=== PATIENT | female | born 1995 | race Caucasian/White ===

== ENCOUNTER 2018-05-12 16:49 | Outpatient (REF) | payer BC, SELFPAY | END 2018-05-12 17:09 | LOC: LBN 16:49 | PROVIDERS: PCP Family Medicine; Visit Provider Nurse Practitioner Family | DX: R30.0 Dysuria (principal) | CPT/HCPCS: 87077; 87086; 87186 ==

== ENCOUNTER 2018-10-15 17:16 | Outpatient (REF) | payer BC, SELFPAY ==
--- NOTE | 2018-10-15 16:00 | PAPFT_PTH ---
PATIENT: Jenni Chawla LOC: [facility] U#:[id number] AGE/SX: 23/F ROOM: RE10/15/[address]: Radha Peguero NP : 1995 BED: DIS: 10/15/2018 SPEC #: [id number] RECD: 10/15/18 17:57 STATUS: NAMRATA RESemaj #: [id number] GABY: 10/15/18 16:[address]: Radha Peguero NP DEPT: [facility] Cytology RECD BY: Camelia Taylor ENTERED: 10/15/18 17:57 SP TYPE: PAPFT OTHR DR: Nahomi Contreras Tissues: 1 - CX/ENDOCX FOR PAP SMEARS Procedures: PAP THIN PREP/UVM Screening Comments: [id number]
== END 2018-10-15 17:36 ==
LOC: LBN 17:16
PROVIDERS: PCP Family Medicine; Visit Provider Nurse Practitioner Women's Health
DX: Z12.4 Encounter for screening for malignant neoplasm of cervix (principal)
CPT/HCPCS: 88142

== ENCOUNTER 2018-12-03 14:03 | Outpatient (CLI) | payer BC, SELFPAY ==
[2018-12-03 14:43] LABS: Abs Immature Grans 0.01 k/cumm (0.0-0.09); Absolute Basophil Count 0.03 k/cumm (0.0-0.2); Absolute Eosinophil Count 0.22 k/cumm (0.0-0.7); Absolute Lymphocyte Count 2.32 k/cumm (1.2-3.4); Absolute Monocyte Count 0.77 k/cumm (0.11-0.7); Absolute Neutrophil Count 7.24 k/cumm (1.2-6.7); Basophils % 0.3; Eosinophils % 2.1; HCT 39.9 % (36.0-46.0); HGB 13.8 g/dL (12.0-15.5); Immature Grans % 0.1; Lymphocytes % 21.9; Mean Corp. HGB Concentration 34.6 g/dL (32.0-36.0); Mean Corpuscular Hemoglobin 30.5 pg (27.0-33.0); Mean Corpuscular Volume 88.3 fL (80-95); Mean Platelet Volume 11.6 fL (8.0-11.0); Monocytes % 7.3; Neutrophils % 68.3; Platelet Count 275 x1000/uL (130-400); RBC 4.52 m/cumm (4.00-5.20); RBC Distribution Width 12.7 % (11.7-14.6); White Blood Cell Count 10.59 k/cumm (4.4-10.8)
[2018-12-03 18:50] LABS: *AMPHETAMINES SCREEN URINE Negative (Negative); *BARBITURATES SCREEN URINE Negative (Negative); *BENZODIAZEPINES SCREEN URINE Negative (Negative); Cannabinoids THC Negative (Negative); Cocaine Screen,Urine Negative (Negative); METHADONE URINE SCREEN Negative (Negative); OPIATES URINE SCREEN Negative (Negative)
[2018-12-03 19:13] LABS: Tricyclic Antidepressants Negative (Negative)
[2018-12-04 09:28] LABS: Hepatitis B Surface Ag Negative (NEGAT)
[2018-12-04 09:43] LABS: HIV-1/2 Ag & Ab Screen Negative (NEGAT)
[2018-12-04 09:52] LABS: Syphilis Serology (RPR) Negative (Negative)
[2018-12-04 10:37] LABS: Hepatitis C Ab w Rflx HCV PCR Negative (NEGAT)
[2018-12-04 20:40] LABS: Rubella IgG Ab (UVM) Positive
[2018-12-04 20:45] LABS: Varicella IgG Antibody Positive
[2018-12-08 11:03] LABS: Buprenorphine Negative; Norbuprenorphine Negative
== END 2018-12-03 14:23 ==
PROVIDERS: PCP Family Medicine; Visit Provider Advanced Practice Midwife
DX: Z34.91 Encounter for supervision of normal pregnancy, unspecified, first trimester (principal); Z11.59 Encounter for screening for other viral diseases; Z11.4 Encounter for screening for human immunodeficiency virus [HIV]; Z01.84 Encounter for antibody response examination
CPT/HCPCS: 36415; 80055; 80307; 86787; 86803; 86850; 86900; 86901; 87340; 87389; 86592; 86762; 87086

== ENCOUNTER 2019-09-21 05:50 | Emergency (ER) | payer BC, SELFPAY ==
[2019-09-21 05:54] VITALS: BP 112/79; PULSE 95; RESP 16; TEMP 36.5; O2SAT 95
--- NOTE | 2019-09-21 06:17 | W.ED.GENAD ---
Discharge Plan Disposition Patient Disposition: HOME Condition: Good Discharge Details Chief Complaint: Fever Clinical Impression: Influenza B Primary Care Provider: Nahomi Contreras ED Provider: Claude Du Discharge Instructions Instructions: Influenza (ED) Additional Instructions: You are influenza B positive. Please get plenty of rest, drink plenty of fluids. Recommend 10 to 12 cups of water per day. Take 1000 mg of Tylenol every 6 hours as needed for fever or myalgias. If you notice any worsening of your symptoms, or any new symptoms such as vomiting, diarrhea, fever, chills, shortness of breath, chest pain, numbness, weakness, or fainting , please return immediately to the emergency department for reevaluation. Please follow up with your primary care provider as soon as possible for reassessment and reevaluation. As always, it was a pleasure participating in your medical care today. Referrals: Nahomi Contreras [Primary Care Provider] - Medical Decision Making 24-year-old female who presents for 5 days of congestion, runny nose, mild sore throat, fever, recent nonproductive cough. She denies any significant neck pain. She has 3-month-old who was recently diagnosed with RSV 2 to 3 weeks ago. She works at a daycare. She did not get her flu shot. Physical exam is notably reassuring, no significant erythema in the posterior oropharynx, no evidence of clinical meningitis. Lung sounds are notably clear. We discussed imaging options and the patient would like to hold off on any radiographic images at this time. Signs and symptoms appear clinically inconsistent with pneumonia. Signs and symptoms are certainly concerning for influenza. Will test for flu. As she has had 5 days of symptoms she is not a candidate for Tamiflu at this time. We did discuss administration of this though as well as risks and benefits and will hold off through shared decision making process. 6:24 AM Patient's influenza has returned influenza B positive. Correlates well with her signs and symptoms. Patient will be discharged home with recommendations for continued fluids, Tylenol as needed. I recommended avoiding her work at her daycare to reduce transmission. I have extensively reviewed the treatment plan and discharge instructions with the patient. I have addressed all patient concerns at this time. The patient was made aware of what symptoms to monitor for that would warrant a return to the emergency department. Discussed the plan with the patient, they demonstrate verbal understanding and agreement with our assessment and plan at this time. HPI General Date/Time Provider Initiated Documentation: 09/21/19 05:59. HPI Narrative: 24-year-old female who presents today for fever, chills, myalgias. Patient states that over the last 5 days she has had these symptoms, slightly worsening today. She does admit to a very mild cough that just started, no productivity or blood. She has did not get her flu shot this year. She does work at a daycare. Her 3-month-old child was recently diagnosed with RSV 2 to 3 weeks ago. He has recovered well. Patient has been taking Tylenol for intermittent fever which is controlled her symptoms well. She does admit to minimal sore throat. She denies any chest pain or shortness of breath otherwise. She denies any other complaints at this time. Denies PE risk factors such as recent long car rides, immobilization, recent surgery, prior history of DVT or PE, family history of PE or DVT, morbid obesity, exogenous estrogen and smoking, hemoptysis, history of cancer. Related Data Allergies Allergy/AdvReac Type Severity Reaction Status Date / Time contrast dye\ AdvReac Severe Swollen, Uncoded 09/21/19 05:59 itchy eyes, rash General Stated Complaint: Fever CHANO: 4 Review of Systems All systems reviewed & are unremarkable except as noted in HPI and below PFSH Family History Mother No problems noted. Father No problems noted. Sister No problems noted. Social History Smoking/Tobacco Use Status: Never Alcohol Intake: never Drug use: Never Substance use type: does not use Do you feel safe at home: Yes Do you feel safe in your relationship?: Yes Female Reproductive History Menstrual control method: pills History History 1 Para 0 Hx # Term Pregnancies 0 Multiple births 0 Hx # Pregnancies 0 Ectopic pregnancies 0 AB induced 0 Hx Number of Living Children 0 AB spontaneous 0 Exam Narrative Exam Narrative: 1.Const: Well-nourished, Well-developed, appearing stated age 2.Eyes: PERRL, no conjunctival injection, and symmetrical lids. 3.ENT: Atraumatic external nose and ears. Moist MM. Neck: Symmetric, trachea midline, No thyromegaly. No significant erythema in the posterior oropharynx, no tonsillar enlargement or tonsillar exudate. Ears demonstrate no evidence of otitis media. Patient demonstrates good movement of cervical neck. There is no nuchal rigidity, no nuchal tenderness. Patient is able to flex the neck without any difficulty or significant pain. Negative Kernig's and Brudzinski sign. 4.CVS: +S1/S2, No murmurs or gallops. Peripheral pulses 2+ and equal in all extremities. Brisk capillary refill in all extremities. 5.RESP: Unlabored respiratory effort. Clear to auscultation bilaterally. No wheezes rales or rhonchi 6.GI: Soft, Nontender/Nondistended, No hepatosplenomegaly. No guarding or rebound. 7.MSK: Normocephalic/Atraumatic, Extremities w/o deformity or ttp No cyanosis or clubbing, Normal movement of all extremities 8.Skin: Warm, Dry. No rashes or lesions. 9.Neuro: traffic supervisor II-XII grossly intact. Sensation grossly intact, no focal neurologic deficits. 10.Psych: (AAO) x3. Appropriate mood and affect Course Vital Signs Vital signs: Vital Signs Temperature 36.5 C 09/21/19 05:54 Pulse 95 H 09/21/19 05:54 Respiratory Rate 16 09/21/19 05:54 Blood Pressure 112/79 09/21/19 05:54 Pulse Oximetry 95 09/21/19 05:54 Temperature 36.5 C 09/21/19 05:54 Temperature Source Skin 09/21/19 05:54 Pulse 95 H 09/21/19 05:54 Respiratory Rate 16 09/21/19 05:54 Respiratory Effort Non-Labored 09/21/19 05:58 Blood Pressure 112/79 09/21/19 05:54 Pulse Oximetry 95 09/21/19 05:54 Pain Level 4 09/21/19 05:54 Lab/Test Results Lab/Test Results: 09/21/19 06:00 Nose Influenza Types A,B Antigen - Pending
== END 2019-09-21 06:30 | disposition home or self-care (01) ==
LOC: ER 06:38
PROVIDERS: Emergency Provider Student in an Organized Health Care Education/Training Program; PCP Family Medicine
DX: J10.1 Influenza due to other identified influenza virus with other respiratory manifestations (principal)
CPT/HCPCS: 87449; 99282

== ENCOUNTER 2020-06-24 10:21 | Emergency (ER) | payer BC, SELFPAY ==
--- NOTE | 2020-06-24 10:15 | DI.RAD_ITS ---
EXAM: XR CHEST 2V PA LATERAL CLINICAL HISTORY: Left sided chest pain TECHNIQUE: 2D digital imaging was performed. COMPARISON: No exams were available for comparison FINDINGS: MEDIASTINUM: Normal. HEART: Normal. PULMONARY VASCULATURE: Normal. LUNGS: Clear. PLEURAL SPACE: No pleural effusion or pneumothorax. BONE:Normal. IMPRESSION: No acute pulmonary findings. DATA REPOSITORY: RADIATION DOSE DELIVERED:
--- NOTE | 2020-06-24 10:15 | RT.EKG_ITS ---
APPROVED REPORT Exam: Resting ECG Patient Location: E HR:79 bpm ECG Measurements Heart Rate 79 AXIS AK 147 P 44 QRSd 82 QRS 63 QT 371 T 37 QTc 424 Conclusion Sinus rhythm...normal P axis, V-rate 60- 99
[2020-06-24 10:23] VITALS: BP 131/91; PULSE 97; RESP 18; TEMP 37.3; O2SAT 99
--- NOTE | 2020-06-24 10:29 | ED.GENADUL_ITS ---
Discharge Plan Disposition Patient Disposition: HOME Condition: Stable Discharge Details Clinical Impression: Costochondral chest pain Primary Care Provider: Nahomi Contreras ED Provider: Violeta Go Home Meds and New Rx's Prescriptions: No Action etonogestrel-ethinyl estradiol [EluRyng] 0.12-0.015 mg/24 hr ring VAGINAL RF: 0 Discharge Instructions Instructions: Costochondritis (ED) Additional Instructions: Follow up with primary care provider in 3-5 days. Return to ED sooner if any worsening or concerns. Increase oral fluids. Please take Tylenol or Ibuprofen w ith food every 4-6 hours as needed for pain and swelling. Please return to the ED for any worsening pain, increased shortness of breath, fever, vomiting or any concerns in the next 2 to 3 days. Referrals: Nahomi Contreras [Primary Care Provider] - Medical Decision Making 24-year-old female presents to the ED with chief complaint of left-sided chest pain which began yesterday while at rest. She states that the pain is left axillary radiates up into her left anterior chest and shoulder. She does describe mild amount of shortness of breath. Denies cough she is a non-smoker. She does have a past medical history of a murmur, she does take control she has a NuvaRing, she denies any recent long trips in a car or plane. She describes pain that gets worse with movement and deep breathing. Patient has a listed allergy for contrast dye when questioned further she states that in [address] she had an abdominal CT and woke up the next morning with full body rash and periorbital swelling. At this time I do think this to be a legitimate allergy. We will discussed the risks and benefits for possible CT chest to rule out PE with patient. Differential diagnosis includes but not limited to PE, pleuritic chest pain, coronary artery disease, costochondritis, pneumonia, viral illness. EKG was reviewed by Dr. Manoj Regalado MD ER attending, please see official report. EXAM: XR CHEST 2V PA LATERAL CLINICAL HISTORY: Left sided chest pain TECHNIQUE: 2D digital imaging was performed. COMPARISON: No exams were available for comparison FINDINGS: MEDIASTINUM: Normal. HEART: Normal. PULMONARY VASCULATURE: Normal. LUNGS: Clear. PLEURAL SPACE: No pleural effusion or pneumothorax. BONE:Normal. IMPRESSION: No acute pulmonary findings. Labs are largely unremarkable. CBC shows no leukocytosis, D-dimer is 333, sodium 140, potassium 3.7 chloride 108 anion gap is 9.2 BUN is 10, creatinine 0.78 GFR greater than 60. At this time symptoms do appear more as pleuritic type chest pain. Discussed that I cannot definitively rule out a PE without doing a CT chest patient verbalizes understanding at this time she wishes to be discharged home discuss strict return instructions, verbalized understanding. HPI General Mode of arrival: ambulatory . Date/Time Provider Initiated Documentation: 06/24/20 10:24 . Limitations to Documentation: no limitations . Information obtained by: patient . HPI Narrative: 24-year-old female presents to the ED with chief complaint of left-sided chest pain which began yesterday while at rest. She states that the pain is left axillary radiates up into her left anterior chest and shoulder. She does describe mild amount of shortness of breath. Denies cough she is a non-smoker. She does have a past medical history of a murmur, she does take control she has a NuvaRing, she denies any recent long trips in a car or plane. She describes pain that gets worse with movement and deep breathing. Related Data Home Medications Medication Instructions Recorded Confirmed etonogestrel-ethinyl estradiol vag ring VAGINAL 06/24/20 [EluRyng] Allergies Allergy/AdvReac Type Severity Reaction Status Date / Time contrast dye\ AdvReac Severe Swollen, Uncoded 06/24/20 10:28 itchy eyes, rash General Stated Complaint: Chest Pain CHANO: 3 Review of Systems Narrative: Constitutional: Negative for weight loss, alert and oriented, well groomed, normal body habitus, appears comfortable. HEENT: Denies trauma, headaches, blurry vision, nasal discharge, sore throat, trouble swallowing. Chest: Denies palpitations, irregular rhythm, hypertension. Positive chest pain. Respiratory: Denies cough, hemoptysis. Positive shortness of breath. GI: Denies abdominal pain, nausea, vomiting, diarrhea, constipation. : Denies dysuria, hematuria, flank pain, rectal bleeding. Neuro: Denies dizziness, blurry vision, weakness, syncope, headache or facial numbness. Hematologic: Denies easy bruising, intolerance to heat or cold, hair loss. [facility] Family History Mother No problems noted. Father No problems noted. Sister No problems noted. Social History Smoking/Tobacco Use Status: Never Smoking risk assessment performed?: Yes Alcohol Intake: never Drug use: Never Substance use type: does not use Do you feel safe at home: Yes Do you feel safe in your relationship?: Yes Female Reproductive History Menstrual control method: pills History History 1 Para 0 Hx # Term Pregnancies 0 Multiple births 0 Hx # Pregnancies 0 Ectopic pregnancies 0 AB induced 0 Hx Number of Living Children 0 AB spontaneous 0 Exam Narrative Exam Narrative: Constitutional: Alert and oriented x3. Appears stated age. Normal body habitus. Head: Normocephalic, no trauma. Eyes: Pupils PERRLA, Red reflex noted, EOM's intact. Eyelids symmetrical without lesions, discharge, or swelling. ENT: Bilateral TM's WNL, External ear normal to inspection, no mastoid TTP, sw elling, or erythema, Nasal turbinates WNL, no nasal discharge. Normal dentition, Posterior pharynx WNL, no exudate. Chest: RRR, Normal S1, S2, distal pulses intact. Resp: Lungs clear to auscultation bilaterally, no wheezes, rales, or rhonchi. Musculoskeletal: Normal gait, 5/5 strength to all four extremities. Skin: No suspicious rashes or lesions. Capillary refill less than 2 sec. Neurologic: Cranial nerves II-XII intact. Alert and oriented x 3. DTR's intact. Hematologic/Lymphatic: No ecchymosis, no lymphadenopathy. Course Vital Signs Vital signs: Vital Signs Temperature 37.3 C 06/24/20 10:23 Pulse 97 H 06/24/20 10:23 Respiratory Rate 18 06/24/20 10:23 Blood Pressure 131/91 H 06/24/20 10:23 Pulse Oximetry 99 06/24/20 10:23 Temperature 37.3 C 06/24/20 10:23 Temperature Source Temporal Artery Scan 06/24/20 10:23 Pulse 97 H 06/24/20 10:23 Respiratory Rate 18 06/24/20 10:23 Blood Pressure 131/91 H 06/24/20 10:23 Blood Pressure Position Sitting 06/24/20 10:23 Pulse Oximetry 99 06/24/20 10:23 Oxygen Delivery Method Room Air 06/24/20 10:23 Oxygen Flow Rate 0 06/24/20 10:23
[2020-06-24 10:40] VITALS: BP 131/91; PULSE 95
[2020-06-24] MEDS: Aspirin 81 MG CHEW 324 MG CH (10:46)
[2020-06-24 10:53] LABS: Abs Immature Grans 0.01 10^3/uL (0.0-0.06); Absolute Basophil Count 0.06 10^3/uL (0.0-0.2); Absolute Eosinophil Count 0.33 10^3/uL (0.0-0.7); Absolute Lymphocyte Count 2.46 10^3/uL (1.2-3.4); Absolute Monocyte Count 0.42 10^3/uL (0.1-0.8); Absolute Neutrophil Count 4.63 10^3/uL (1.2-6.7); Basophils % 0.8; Eosinophils % 4.2; HCT 45.1 % (36.0-46.0); HGB 15.1 g/dL (11.2-15.7); Immature Grans % 0.1; Lymphocytes % 31.1; MCHC 33.5 % (32.0-36.0); MCV 89.7 fL (80-95); Monocytes % 5.3; Neutrophils % 58.5; Nucleated RBC 0 %; Platelet Count 256 10^3/uL (130-400); RBC 5.03 10^6/uL (3.93-5.22); RDW 11.9 % (11.7-14.6); RDW-SD 38.7 fL; WBC 7.91 10^3/uL (4.4-10.8)
[2020-06-24 11:20] VITALS: BP 116/81; PULSE 65; PULSE 76; RESP 20; O2SAT 99
[2020-06-24 11:28] LABS: D-Dimer 333 ng/mlFEU (<500)
[2020-06-24 11:31] VITALS: BP 109/72; PULSE 64; PULSE 66; RESP 20; O2SAT 100
[2020-06-24 11:40] LABS: ALT 15 U/L (14-59); AST 18 U/L (15-37); Albumin 3.7 g/dL (3.4-5.0); Alkaline Phosphatase 70 U/L (46-116); Anion Gap 9.2 mmol/L (3-11); BUN 10 mg/dL (7-18); Bilirubin, Total 0.5 mg/dL (0.2-1.0); CO2 22.8 mmol/L (21.0-32.0); CREATININE 0.78 mg/dL (0.55-1.02); Calcium 9.2 mg/dL (8.5-10.1); Chloride 108 mmol/L (98-107); Glucose 90 mg/dL (74-106); Magnesium 2.1 mg/dL (1.8-2.4); Potassium 3.7 mmol/L (3.5-5.1); Sodium 140 mmol/L (136-145); Total Protein 7.5 g/dL (6.4-8.2)
[2020-06-24 11:41] LABS: Troponin I < 0.05 ng/mL (<0.06)
[2020-06-24 12:01] VITALS: BP 112/74; PULSE 72; PULSE 89; RESP 18; O2SAT 99
[2020-06-24] MEDS: Ketorolac 15 MG/ML VIAL IVP (12:12)
== END 2020-06-24 12:36 | disposition home or self-care (01) ==
PROVIDERS: Emergency Provider Registered Nurse Emergency; PCP Family Medicine
DX: M94.0 Chondrocostal junction syndrome [Tietze] (principal); R06.02 Shortness of breath
CPT/HCPCS: 36415; 80053; 93005; 96374; 99285; 71046; 83735; 84484; 85025; 85379; 93010; 99284; J1885

== ENCOUNTER 2022-03-05 14:59 | Outpatient (REF) | payer BC, SELFPAY ==
[2022-03-05 13:45] LABS: Abs Immature Grans 0.02 10^3/uL (0.0-0.06); Absolute Basophil Count 0.05 10^3/uL (0.0-0.2); Absolute Eosinophil Count 0.31 10^3/uL (0.0-0.7); Absolute Lymphocyte Count 2.69 10^3/uL (1.2-3.4); Absolute Monocyte Count 0.36 10^3/uL (0.1-0.8); Absolute Neutrophil Count 4.65 10^3/uL (1.2-6.7); Basophils % 0.6; Eosinophils % 3.8; HCT 42.6 % (36.0-46.0); HGB 14.5 g/dL (11.2-15.7); Immature Grans % 0.2; Lymphocytes % 33.3; MCH 30.4 pg (27.0-33.0); MCV 89 fL (80-95); MPV 11.7 fL (8.0-11.0); Monocytes % 4.5; Neutrophils % 57.6; Platelet Count 270 10^3/uL (130-400); RBC 4.77 10^6/uL (3.93-5.22); RDW-SD 39.8 fL; WBC 8.08 10^3/uL (4.4-10.8)
[2022-03-05 13:52] LABS: ALT 23 U/L (14-59); AST 22 U/L (15-37); Albumin 4.3 g/dL (3.4-5.0); Alkaline Phosphatase 76 U/L (46-116); Amylase 50 U/L (25-115); Anion Gap 11.3 mmol/L (3-11); BUN 7 mg/dL (7-18); Bilirubin, Total 0.5 mg/dL (0.2-1.0); CO2 23.7 mmol/L (21.0-32.0); CREATININE 0.6 mg/dL (0.55-1.02); Calcium 9.3 mg/dL (8.5-10.1); Chloride 104 mmol/L (98-107); Glucose 90 mg/dL (74-106); Lipase 103 U/L (73-393); Potassium 4.1 mmol/L (3.5-5.1); Sodium 139 mmol/L (136-145); Total Protein 8.2 g/dL (6.4-8.2)
[2022-03-05 13:58] LABS: ESR 6 mm/hr (0-20)
[2022-03-06 11:36] LABS: Campylobacter PCR Negative (Negative); Salmonella PCR Negative (Negative); Shiga Toxin PCR Negative (Negative); Shigella/Enteroinvasive Ecoli Negative (Negative)
[2022-03-07 11:58] LABS: IgA 153 mg/dL (85-499); Interpretation (See Note); Tissue Transglutaminase IgA <1.2 U/mL (<4.0)
== END 2022-03-05 15:00 | disposition home or self-care (01) ==
LOC: LBN 14:59
PROVIDERS: PCP Family Medicine; Visit Provider Nurse Practitioner Family
DX: R19.7 Diarrhea, unspecified (principal)
CPT/HCPCS: 80053; 82784; 83516; 83690; 85652; 87329; 87493; 87505; 82150; 82274; 83630; 85025; 87177

== ENCOUNTER 2022-03-23 19:39 | Outpatient (POV) | payer BC, SELFPAY ==
[2022-03-23 17:06] LABS: Abs Immature Grans 0.02 10^3/uL (0.0-0.06); Absolute Basophil Count 0.06 10^3/uL (0.0-0.2); Absolute Eosinophil Count 0.16 10^3/uL (0.0-0.7); Absolute Lymphocyte Count 2.66 10^3/uL (1.2-3.4); Absolute Monocyte Count 0.33 10^3/uL (0.1-0.8); Basophils % 0.6; Eosinophils % 1.7; HCT 41.8 % (36.0-46.0); HGB 14.5 g/dL (11.2-15.7); Immature Grans % 0.2; Lymphocytes % 28.5; MCH 30.7 pg (27.0-33.0); MCHC 34.7 % (32.0-36.0); MCV 89 fL (80-95); MPV 12.1 fL (8.0-11.0); Monocytes % 3.5; Neutrophils % 65.5; Platelet Count 267 10^3/uL (130-400); RBC 4.72 10^6/uL (3.93-5.22); RDW 12.1 % (11.7-14.6); RDW-SD 39.5 fL; WBC 9.33 10^3/uL (4.4-10.8)
[2022-03-23 17:23] LABS: Bilirubin Negative (Negative); Blood Negative (Negative); Clarity Clear (Clear); Glucose Negative (Negative); Ketones Negative (Negative); Leukocyte Esterase Negative (Negative); Nitrite Negative (Negative); Urobilinogen 0.2 EU/dL (Up TO 0.2)
[2022-03-23 18:03] LABS: ALT 19 U/L (14-59); AST 20 U/L (15-37); Albumin 3.6 g/dL (3.4-5.0); Alkaline Phosphatase 65 U/L (46-116); Anion Gap 11.7 mmol/L (3-11); BUN 9 mg/dL (7-18); Bilirubin, Total 0.3 mg/dL (0.2-1.0); CO2 24.3 mmol/L (21.0-32.0); CREATININE 0.9 mg/dL (0.55-1.02); Calcium 8.9 mg/dL (8.5-10.1); Chloride 105 mmol/L (98-107); Estimated GFR 91.55 (mL/min/1.73m2); Glucose 112 mg/dL (74-106); Potassium 3.4 mmol/L (3.5-5.1); Sodium 141 mmol/L (136-145); TSH (W/Ref FT4) 1.59 uIU/mL (0.36-3.74)
== END 2022-03-23 19:40 | disposition home or self-care (01) ==
LOC: NCHCN 19:39
PROVIDERS: PCP Family Medicine; Visit Provider Nurse Practitioner Family
DX: R35.0 Frequency of micturition (principal); R19.7 Diarrhea, unspecified
CPT/HCPCS: 80053; 81003; 84443; 85025

== ENCOUNTER 2022-08-23 15:46 | Outpatient (REF) | payer BC, SELFPAY ==
[2022-08-23 14:54] LABS: Bacteria Rare HPF (Negative); C & S Indicated? C&S Done As Ordered; Casts Negative LPF (Negative); Crystals Negative HPF (Negative); Epithelial Cells Rare HPF (Negative); Mucus Negative (Negative)
== END 2022-08-23 15:47 | disposition home or self-care (01) ==
LOC: LBN 15:46
PROVIDERS: PCP Family Medicine; Visit Provider Physician Assistant Medical
DX: R35.0 Frequency of micturition (principal)
CPT/HCPCS: 81015; 87086

== ENCOUNTER 2023-09-28 16:40 | Outpatient (REF) | payer BC, SELFPAY | END 2023-09-28 16:41 | disposition home or self-care (01) | LOC: LBN 16:40 | PROVIDERS: PCP Family Medicine; Visit Provider Physician Assistant | DX: J02.9 Acute pharyngitis, unspecified (principal) | CPT/HCPCS: 87070 ==

== ENCOUNTER → 2023-12-19 19:50 | Outpatient (CLI) | payer BC, SELFPAY ==
--- NOTE | 2023-12-19 19:45 | DI.RAD_ITS ---
Exam(s) XR CHEST 2V PA LATERAL EXAM: XR CHEST 2V PA LATERAL CLINICAL HISTORY: R05.9 COUGH, UNSPECIFIED TECHNIQUE: 2D digital imaging was performed of the chest. Two images were obtained. PA and lateral views were obtained. COMPARISON: CR XR CHEST 2V PA LATERAL from 06/24/2020 FINDINGS: MEDIASTINUM: Normal. HEART: Normal. PULMONARY VASCULATURE: Normal. LUNGS: Clear. PLEURAL SPACE: No pleural effusion or pneumothorax. BONE:Within normal limits for the patient's age. OTHER FINDINGS:Normal. IMPRESSION: No acute pulmonary findings. DATA REPOSITORY: RADIATION DOSE DELIVERED:
--- NOTE | 2023-12-19 20:22 | DI.VRAD_ITS ---
PROCEDURE INFORMATION: Exam: XR Chest Exam date and time: 12/19/2023 7:55 PM Age: 28 years old Clinical indication: Cough; Additional info: R05.9 cough, unspecified TECHNIQUE: Imaging protocol: Radiologic exam of the chest. Views: 2 views. Total images: 2 COMPARISON: CR XR CHEST 2V PA LATERAL 06/24/2020 10:48 AM FINDINGS: Lungs: Lungs are clear without consolidation. Pleural spaces: No pleural effusion or pneumothorax. Heart/Mediastinum: Unremarkable. Bones/joints: Mild pectus excavatum. Thoracic kyphosis. IMPRESSION: No acute findings/pneumonia. Dictated and Authenticated by: Sherif Harvey MD. Ordering:SARAHY Parish MD
== END ==
PROVIDERS: PCP Family Medicine; Visit Provider Physician Assistant Medical
DX: R05.9 Cough, unspecified (principal)
CPT/HCPCS: 71046